=== PATIENT | male | born 1975 | race Caucasian/White ===

== ENCOUNTER 2020-03-15 11:27 | Emergency (ER) | payer OTHER, SELFPAY ==
[2020-03-15 11:36] VITALS: BP 176/112; PULSE 74; RESP 14; TEMP 36.7; O2SAT 99; BMI 34.3
--- NOTE | 2020-03-15 11:42 | DI.RAD.S_ITS ---
PROCEDURE: XR ANKLE RT MIN 3V INDICATIONS: twisted ankle yesterday stepping onto uneven ground TECHNIQUE: 3 views of the ankle were acquired. COMPARISON: None. FINDINGS: Bones: No fractures or dislocations. Ankle mortise is normally aligned. No suspicious bony lesions. Incidental note is made of an accessory ossicle, an os trigonum. Mild, age-appropriate degenerative changes are seen. Soft tissues: No tibiotalar joint effusion. Achilles tendon appears normal. IMPRESSION: Normal ankle plain films for age. If there is point tenderness (or other clinical suspicion for a fracture not seen on these images) then a dedicated CT could be considered for further evaluation, as clinically appropriate. Dictated by: Alfonso Guzman M.D. on 03/15/2020 at 10:59 Approved by: Alfonso Guzman M.D. on 03/15/2020 at 11:00
[2020-03-15 13:50] VITALS: PULSE 70
[2020-03-15 14:11] VITALS: BP 171/108; PULSE 72; RESP 14; O2SAT 99
--- NOTE | 2020-03-15 15:57 | ED_ITS ---
HPI - Extremity Injury (Lower) <NGA Gasca - Last Filed: 03/15/20 16:52> General Chief Complaint: Extremity Injury, Lower Stated Complaint: right ankle pain Time Seen by Provider: 03/15/20 12:05 Source: patient Mode of arrival: Wheelchair Limitations: no limitations History of Present Illness HPI Narrative: This is a 44 year male, nonsmoker, who has non contributory medical history presents to ED with chief complain of right medial ankle pain and swelling. 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 Patient denies fall, inversion or eversion of affected ankle. Patient denies pain in mid foot, right knee, or hips. Patient is able to move his toes and has intact sensation distally. Patient denies previous injury to affected ankle. Patient had soaked affected foot and ankle in warm Epsom salt for 3-4 hours yesterday without much improvement. Patient had taken his old Percocet half a tab this morning but had not use Tylenol or Motrin. Related Data Allergies Allergy/AdvReac Type Severity Reaction Status Date / Time No Known Drug Allergies Allergy Verified 03/15/20 11:41 Review of Systems <NGA Gasca - Last Filed: 03/15/20 16:52> Review of Systems Narrative: General: Denies fever, chills, fatigue, malaise, sweats. Respiratory: Denies dyspnea, cough, wheezing, hemoptysis, sputum. Cardiovascular: Denies chest pain, palpitations, orthopnea, edema. Gastrointestinal: Denies nausea, vomiting, abdominal pain, diarrhea, constipation, melena. Musculoskeletal: See HPI Skin: Denies rash, skin lesions, or other. Patient History <NGA Gasca - Last Filed: 03/15/20 16:52> Medical History No significant past medical history Surgical History No pertinent past surgical history Social History Smoking Status: Never smoker Smoking Status: Never smoker alcohol intake frequency: 0-2 drinks per day Substance Use Type: does not use Exam <NGA Gasca - Last Filed: 03/15/20 16:52> Narrative Exam Narrative: General appearance: well developed, well nourished, in no acute distress. Head: normocephalic, atraumatic, no scalp lesions, non-tender. ENT: Hearing grossly intact. Airway patent. Neck/Thyroid: neck supple, full range of motion, no visible masses or meningeal signs. No JVD, non-tender without lymphadenopathy. Skin: no suspicious rashes, lesions over visible areas. Warm and dry and appropriate color for ethnicity. Heart: no clubbing, no cyanosis, no edema. Lungs: Breathing even and unlabored. No stridor. No accessory muscles used. Able to speak in full sentences. Chest: normal shape and expansion. Abdomen: non-obese, non-distended. Neurologic: alert and oriented. 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 Psych: good eye contact, normal affect. Initial Vital Signs Initial Vital Signs: Vital Signs Temperature 98.1 F 03/15/20 11:36 Pulse Rate 74 03/15/20 11:36 Respiratory Rate 14 03/15/20 11:36 Blood Pressure 176/112 H 03/15/20 11:36 Pulse Oximetry 99 03/15/20 11:36 Extrem Right lower extremity: knee Details: normal to inspection; no tenderness and no swelling, lower leg Details: normal to inspection; no tenderness and no localized swelling, ankle Details: tenderness Location: of the medial malleolus, swelling Details: medially (Mild) and abnormal ROM Details: pain with active ROM and pain with passive ROM; no unusual warmth, no lacerations, no ecchymosis and no crepitus and foot Details: normal capillary refill, normal to inspection, toes with normal ROM and vascular exam Details: dorsalis pedis pulse present <Jimmy Maciel DO - Last Filed: 03/16/20 07:05> Initial Vital Signs Initial Vital Signs: Vital Signs Temperature 98.1 F 03/15/20 11:36 Pulse Rate 74 03/15/20 11:36 Respiratory Rate 14 03/15/20 11:36 Blood Pressure 176/112 H 03/15/20 11:36 Pulse Oximetry 99 03/15/20 11:36 Procedures <Deepak GaliciaangGuillerminaNGA Hemphill - Last Filed: 03/15/20 16:52> Orthopedic Splinting/Casting Injury #1: Side: right Upper Extremity Immobilizer: Haja wrap Lower Extremity Injury Location: ankle Lower Extremity Immobilizer: stirrup splint Other Orthopedic Equipment: crutches Post splinting neuro exam: intact Post splinting vascular exam: intact Placed by: Nursing Scores <Deepak BruceGuillerminaNGA Hemphill - Last Filed: 03/15/20 16:52> GCS Og coma scale eye opening: Spontaneous Melfa coma scale verbal response: Orientated Og coma scale motor response: Obey commands Melfa coma scale total score: 15 Course <Deepak GaliciaangGuillerminaNGA Hemphill - Last Filed: 03/15/20 16:52> Orders Ordered: ED Orders 03/15/20 11:42 XR ankle RT min 3V Stat Vital Signs Vital signs: Vital Signs - 8 hr 03/15/20 11:36 03/15/20 13:50 03/15/20 14:11 Temperature 98.1 F Pulse Rate 74 72 Pulse Rate [Left Dorsalis Pedis] 70 Respiratory Rate 14 14 Blood Pressure 176/112 H 171/108 H Pulse Oximetry 99 99 <Jimmy Maciel DO - Last Filed: 03/16/20 07:05> Orders Ordered: ED Orders 03/15/20 11:42 XR ankle RT min 3V Stat Vital Signs Vital signs: Vital Signs - 8 hr 03/15/20 11:36 03/15/20 13:50 03/15/20 14:11 Temperature 98.1 F Pulse Rate 74 72 Pulse Rate [Left Dorsalis Pedis] 70 Respiratory Rate 14 14 Blood Pressure 176/112 H 171/108 H Pulse Oximetry 99 99 MDM - Extremity Injury (Lower) <Deepak SanchezNGA kapoor - Last Filed: 03/15/20 16:52> Differential Diagnosis Differential diagnosis: Likely ankle sprain and strain and ankle fracture Medical Records Attestation: I reviewed the patient's medical records. Imaging Data XR-Ankle RT: Radiologist's Impression: [address] [id number] ReportSigned Patient: Andrew Lang CMR#: [id number]: [id number]:[id number]/Sex: 44 / MDate of Service: 03/15/20Loc: EDAccession Number: [id number] Procedure: XR ankle RT min 3V Ordering Provider: Jimmy Maciel D.O. PROCEDURE: XR ANKLE RT MIN 3V INDICATIONS: twisted ankle yesterday stepping onto uneven ground TECHNIQUE: 3 views of the ankle were acquired. COMPARISON: None. FINDINGS: Bones: No fractures or dislocations. Ankle mortise is normally aligned. No suspicious bony lesions. Incidental note is made of an accessory ossicle, an os trigonum. Mild, age-appropriate degenerative changes are seen. Soft tissues: No tibiotalar joint effusion. Achilles tendon appears normal. IMPRESSION: Normal ankle plain films for age. If there is point tenderness (or other clinical suspicion for a fracture not seen on these images) then a dedicated CT could be considered for further evaluation, as clinically appropriate. Dictated by: Alfnoso Guzman M.D. on 03/15/2020 at 10:59 Approved by: Alfonso Guzman M.D. on 03/15/2020 at 11:00 [facility] Narrative Medical decision making narrative: This is 44 year male who presents to ED with chief complain of right medial ankle pain after he stepped on uneven ground yesterday and fell something popped. X-ray test without acute findings including fractures or dislocations. Patient has decreased active and passive range motion due to pain. Patient has intact sensation, is able to move his toes. Distal pulses intact. No pain/swelling in lower extremities, mid foot or knee. Affected ankle placed done Haja wrap, prefabricated stirrup splint and provided crutches. Return precautions were discussed with patient and advised to follow up with primary care physician and consider for reimaging test if pain persists greater than 10-14 days. Advised to use [id number] Tylenol and or Motrin as needed for discomfort and RICE therapy. He verbalized understanding in agreement with treatment plan. Discharge Plan Departure Patient Disposition: Home Clinical Impression: Ankle sprain and strain Instructions: Ankle Sprain Activity Restrictions/Additional Instructions: You have been diagnosed with right lateral ankle strain/sprain. Does not show fractures or dislocations. What to do: *Take your medications as directed. Please take [id number] Tylenol 650- 1000 mg up to 3 to 4 times a day. Ibuprofen 400-600 mg up to 3 times a day with food to decrease GI irritation for pain as needed. Please use splint and crutches for pain and weight bearing. *Follow up with your primary care provider in 2-3 days, call for an appointment. Let them know you were seen in the ED and that we asked you to be seen in follow up. If pain persists greater than 10-14 days, please consider repeating imaging test. *Return to ED if you have any new, worsening, or concerning symptoms, such as [worsening swelling, numbness, weakness to affected ankle/foot, chest pain, breathing difficulty, unable to tolerate fluids, or any acute concerns]. <Jimmy Maciel DO - Last Filed: 03/16/20 07:05> Cosign ED Attending Cosignature Attestation: I was immediately available in the department for consultation. This documentation has been reviewed and I agree with assessment and plan. Supervised by Jimmy Maciel DO
== END 2020-03-15 14:13 | disposition home or self-care (01) ==
PROVIDERS: Emergency Provider Nurse Practitioner Family
DX: S93.401A Sprain of unspecified ligament of right ankle, initial encounter (principal); S96.911A Strain of unspecified muscle and tendon at ankle and foot level, right foot, initial encounter; X58.XXXA Exposure to other specified factors, initial encounter; Y99.0 Civilian activity done for income or pay
CPT/HCPCS: 29540; 73610; 99283